=== PATIENT | male | born 1995 | race Caucasian/White ===

== ENCOUNTER 2017-07-16 13:33 | Emergency (ER) | payer SELFPAY ==
[~2017-07-16] VITALS: Ht 175.3 cm; Wt 61.7 kg
[2017-07-16] MEDS ORDERED: MOTRIN600 MG PO (16:37)
[2017-07-16] MEDS ORDERED: PREDNISONE20 MG PO (16:37)
[2017-07-16] MEDS ORDERED: FLEXERIL10 MG PO (16:37)
[2017-07-16 17:14] VITALS: BP 112/67
== END 2017-07-16 17:15 | disposition home or self-care (01) ==
LOC: EME 13:33
DX: S46.012A Strain of muscle(s) and tendon(s) of the rotator cuff of left shoulder, initial encounter (principal); X50.9XXA Other and unspecified overexertion or strenuous movements or postures, initial encounter; Y93.89 Activity, other specified; Y99.0 Civilian activity done for income or pay; F90.9 Attention-deficit hyperactivity disorder, unspecified type; F17.200 Nicotine dependence, unspecified, uncomplicated
CPT/HCPCS: 73030; 99281; 99285; J7512